=== PATIENT | female | born 1965 | race Hispanic/Latino ===

== ENCOUNTER 2016-07-14 10:34 | Emergency (ER) | payer OTHER ==
[2016-07-14 10:50] VITALS: RESP 20
[2016-07-14] MEDS ORDERED: Oxycodone/Acetaminophen 5/325 mg Tab PO STA (12:05)
[2016-07-14] MEDS ORDERED: Oxycodone/Acetaminophen 5/325 mg Tab ONE (12:16)
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
[2016-07-14 13:10] VITALS: BP 126/85; PULSE 76; TEMP 98.6
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
[2016-07-14 13:12] VITALS: O2SAT 98
--- NOTE | 2016-07-14 13:14 | RAD ---
PROCEDURE: Cervical Spine Radiographs. HISTORY: Pain. COMPARISON: None. FINDINGS: BONES: No definite fracture identified. Dense intact. DISC SPACES: Normal. SOFT TISSUES: Normal. No prevertebral soft tissue swelling. OTHER FINDINGS: None. IMPRESSION: No definite fracture. Further evaluation with cross-sectional imaging can be obtained if clinically indicated.
== END 2016-07-14 13:09 | disposition home or self-care (01) ==
LOC: C.ER 10:34
DX: S16.1XXA Strain of muscle, fascia and tendon at neck level, initial encounter (principal); S39.012A Strain of muscle, fascia and tendon of lower back, initial encounter; V79.50XA Passenger on bus injured in collision with unspecified motor vehicles in traffic accident, initial encounter

== ENCOUNTER 2016-09-27 19:14 | Emergency (ER) | payer MEDICAID, OTHER ==
[2016-09-27] MEDS ORDERED: Fluorescein 1 mg Ophthalmic Strip OS ONE (19:38)
[2016-09-27] MEDS ORDERED: Tetracaine 0.5% Ophth 2 ML BOTTLE OU ONE (19:38)
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
[2016-09-27] MEDS ORDERED: Tetracaine 0.5% Ophth (OR ONLY) ONE (19:45)
[2016-09-27] MEDS ORDERED: Fluorescein 1 mg Ophthalmic Strip ONE (19:45)
[2016-09-27 20:35] VITALS: BP 130/87; RESP 20; TEMP 97.7; O2SAT 97
[2016-09-27 20:42] VITALS: PULSE 93
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
== END 2016-09-27 20:35 | disposition home or self-care (01) ==
LOC: C.ER 19:14
DX: S00.12XA Contusion of left eyelid and periocular area, initial encounter (principal); Y04.0XXA Assault by unarmed brawl or fight, initial encounter; Y93.89 Activity, other specified; Y92.89 Other specified places as the place of occurrence of the external cause

== ENCOUNTER 2017-01-11 12:00 | Emergency (ER) | payer OTHER ==
--- NOTE | 2017-01-11 12:33 | C.PDOC ---
History Of Present Illness 51 y/o female with Hx of Asthma presents to ED with complaints of cough and congestion for 3 days associated with onset sob last night. Patient also reports wheezing but denies fever, nausea, vomiting, abdominal pain, headache or any other complaints at this time. Time Seen by Provider: 01/11/17 12:27 Chief Complaint (Nursing): Cough, Cold, Congestion History Per: Patient History/Exam Limitations: no limitations Onset/Duration Of Symptoms: Days Current Symptoms Are (Timing): Still Present Associated Symptoms: Cough, Nasal Congestion Past Medical History Reviewed: Historical Data, Nursing Documentation, Vital Signs Vital Signs: Last Vital Signs Temp 97.8 F 01/11/17 13:21 Pulse 96 H 01/11/17 13:21 Resp 20 01/11/17 13:21 BP 160/97 H 01/11/17 13:21 Pulse Ox 97 01/11/17 13:21 - Medical History PMH: Asthma, Hypercholesterolemia Surgical History: No Surg Hx Family History: States: Unknown Family Hx - Social History Hx Tobacco Use: No Hx Alcohol Use: No Hx Substance Use: No - Immunization History Hx Tetanus Toxoid Vaccination: No Hx Influenza Vaccination: No Hx Pneumococcal Vaccination: No Review Of Systems Constitutional: Negative for: Fever, Chills ENT: Positive for: Nose Congestion Cardiovascular: Negative for: Chest Pain Respiratory: Positive for: Cough, Shortness of Breath Gastrointestinal: Negative for: Nausea, Vomiting, Abdominal Pain Skin: Negative for: Rash Physical Exam - Physical Exam Appears: Non-toxic, Other (Mild respiratory distress) Skin: Warm, Dry, No Rash Head: Atraumatic, Normacephalic Eye(s): bilateral: Normal Inspection Nose: Normal, No Flaring Oral Mucosa: Moist Throat: Normal, No Erythema Chest: Symmetrical Cardiovascular: Rhythm Regular, No Murmur Respiratory: No Rales, No Rhonchi, Wheezing (bilateral) Gastrointestinal/Abdominal: Soft, No Tenderness, No Guarding, No Rebound Neurological/Psych: Oriented x3 ED Course And Treatment O2 Sat by Pulse Oximetry: 98 (RA) Pulse Ox Interpretation: Normal Medical Decision Making Medical Decision Making: Impression: wheeze, asthma exacerbation, URI Plan: * duonebs x3 * prednisone Reassess and Disposition: Pre peak flow 250, post 300 On reevaluation patient reports feeling better. Lung sounds mildly improved, still wheeze with better air exchange. Patient is asking for discharge and needs Rx for nebulizer machine and albuterol. Rx given. Instruct to follow up with primary doctor. Disposition Counseled Patient/Family Regarding: Diagnosis, Need For Followup, Rx Given - Disposition Referrals: Kirstie Sosa MD [Medical Doctor] - Disposition: HOME/ ROUTINE Disposition Time: 13:25 Condition: IMPROVED Additional Instructions: Your prescriptions were sent to your pharmacy [facility] Please use nebulizer as needed every 4 hours and rescue inhaler as needed Take prednisone daily for 4 days Follow up with your primary doctor Return to the emergency department at any time if symptoms persist or worsen. Prescriptions: Albuterol 0.083% [Albuterol 0.083% Inhal Lise (2.5 mg/3 ml) UD] 2.5 mg IH Q4 # 100 neb Albuterol HFA [Ventolin HFA 90 mcg/actuation (8 g)] 1 puff IH Q4 #1 puff Mask, Face [Nebulizer Aerosol Mask Adult] 1 dev XX PRN #1 dev Nebulizer [Aerosol Therapy Nebulizer] 1 dev XX PRN PRN #1 dev PRN Reason: Shortness Of Breath Prednisone 50 mg PO DAILY #4 tablet Instructions: Asthma (GEN) Forms: [employer] (Cook Islander) - POA Present On Arrival: None - Clinical Impression Clinical Impression: Upper respiratory infection, Asthma exacerbation - PA / LIBRARY SPECIALIST / Resident Statement MD/DO has reviewed & agrees with the documentation as recorded. - Scribe Statement The provider has reviewed the documentation as recorded by the Mich Solano All medical record entries made by the Elsaibabraham were at my direction and personally dictated by me. I have reviewed the chart and agree that the record accurately reflects my personal performance of the history, physical exam, medical decision making, and the department course for this patient. I have also personally directed, reviewed, and agree with the discharge instructions and disposition.
[2017-01-11] MEDS ORDERED: Albuterol-Ipratrop 3 mg / 0.5 (3 ml) UD ONE (12:39)
[2017-01-11] MEDS: Albuterol-Ipratrop 3 mg / 0.5 (3 ml) UD IH SCH (13:04)
[2017-01-11 13:22] VITALS: BP 160/97; PULSE 96; RESP 20; TEMP 97.8
[2017-01-11 13:38] VITALS: O2SAT 98
== END 2017-01-11 13:27 | disposition home or self-care (01) ==
LOC: C.ER 12:00
DX: J06.9 Acute upper respiratory infection, unspecified (principal); J45.901 Unspecified asthma with (acute) exacerbation

== ENCOUNTER 2017-02-17 09:57 | Emergency (ER) | payer OTHER ==
[2017-02-17 10:04] VITALS: BMI 24.7
[2017-02-17 10:05] VITALS: TEMP 97.9
[2017-02-17 10:22] VITALS: RESP 16
--- NOTE | 2017-02-17 10:40 | C.PDOC ---
History Of Present Illness Pt is a 51 yr old female with PMHx of asthma and possible HTN, presents to the ER stating her blood pressure was found to be high yesterday at [facility]. Patient states her systolic was 175 and is concerned (cannot recall diastolic). Patient reports her blood pressure has been high in the past. Patient denies fever, chest pain, SOB, nausea, vomiting, headache, weakness or numbness. Pt states she feels fine (no symptoms) but is anxious about her BP being high. No other complaints at this time. PMD: DR. Sosa Time Seen by Provider: 02/17/17 10:27 Chief Complaint (Nursing): High Blood Pressure History Per: Patient History/Exam Limitations: no limitations Onset/Duration Of Symptoms: Days Associated Symptoms: denies: Chest Pain, Headache Past Medical History Reviewed: Historical Data, Nursing Documentation, Vital Signs Vital Signs: Last Vital Signs Temp 97.9 F 02/17/17 10:13 Pulse 90 02/17/17 10:53 Resp 16 02/17/17 10:53 BP 150/94 H 02/17/17 10:53 Pulse Ox 99 02/17/17 11:17 - Medical History PMH: Asthma, Hypercholesterolemia Family History: States: No Known Family Hx - Social History Hx Tobacco Use: No Hx Alcohol Use: No Hx Substance Use: No - Immunization History Hx Tetanus Toxoid Vaccination: No Hx Influenza Vaccination: No Hx Pneumococcal Vaccination: No Review Of Systems Except As Marked, All Systems Reviewed And Found Negative. Constitutional: Negative for: Fever Cardiovascular: Negative for: Chest Pain Respiratory: Negative for: Shortness of Breath Gastrointestinal: Negative for: Nausea, Vomiting Neurological: Negative for: Weakness, Numbness, Headache Physical Exam - Physical Exam Appears: Non-toxic, No Acute Distress Skin: Warm, Dry, No Rash Head: Atraumatic, Normacephalic Eye(s): bilateral: Normal Inspection, EOMI Nose: Normal Oral Mucosa: Moist Tongue: Normal Appearing Lips: Normal Appearing Throat: Normal Neck: Normal Lymphatic: Deferred Chest: Symmetrical, No Tenderness Cardiovascular: Rhythm Regular, No Murmur Respiratory: Normal Breath Sounds, No Rales, No Rhonchi, No Stridor, No Wheezing Extremity: Normal ROM, No Swelling Extremity: Bilateral: Atraumatic Neurological/Psych: Oriented x3, Normal Speech, Normal Motor, Other (nonfocal) ED Course And Treatment O2 Sat by Pulse Oximetry: 99 (RA) Pulse Ox Interpretation: Normal Medical Decision Making Medical Decision Making: Initial Impression: HTN--Untreated Initial Plan: Will d/c on HCTZ and pt states she will follow up with her PMD Progress note: First dose given of HCTZ. BP lower now. Pt w/ no symptoms. Will d/c home. Disposition Counseled Patient/Family Regarding: Diagnosis, Need For Followup - Disposition Referrals: Kirstie Sosa MD [Medical Doctor] - Disposition: HOME/ ROUTINE Disposition Time: 11:12 Condition: IMPROVED Additional Instructions: Ms. Amaro, thank you for letting us take care of you today. Return to the ER if your symptoms worsen, or if any problems. Take the medication listed below as prescribed. It was sent electronically to [facility]. Follow up with Dr. Sosa next week for a re-evaluation (to repeat your blood pressure). Prescriptions: hydroCHLOROthiazide [Hydrodiuril] 1 tab PO DAILY #30 tab Instructions: Hypertension (ED) Forms: [employer] (Yoruba) Print Language: BULGARIAN - POA Present On Arrival: None - Clinical Impression Clinical Impression: Hypertension - Scribe Statement The provider has reviewed the documentation as recorded by the Mich Mckeon Provider Attestation: All medical record entries made by the Mich were at my direction and personally dictated by me. I have reviewed the chart and agree that the record accurately reflects my personal performance of the history, physical exam, medical decision making, and the department course for this patient. I have also personally directed, reviewed, and agree with the discharge instructions and disposition.
[2017-02-17 10:54] VITALS: BP 150/94; PULSE 90
[2017-02-17 10:57] VITALS: O2SAT 99
== END 2017-02-17 11:24 | disposition home or self-care (01) ==
LOC: C.ER 09:57
DX: I10 Essential (primary) hypertension (principal); E78.00 Pure hypercholesterolemia, unspecified

== ENCOUNTER → 2017-04-24 18:43 | Emergency (ER) | payer MEDICAID, OTHER ==
[2017-04-24 18:43] VITALS: BMI 24.7
== END | disposition left against medical advice (07) ==
LOC: C.ER 18:43
DX: R06.02 Shortness of breath (principal); Z02.9 Encounter for administrative examinations, unspecified

== ENCOUNTER 2017-06-01 16:43 | Emergency (ER) | payer MEDICAID ==
[2017-06-01 17:17] VITALS: BMI 24.6
[2017-06-01 17:19] VITALS: BP 155/125; PULSE 115; RESP 20; TEMP 98.2; O2SAT 95
[2017-06-01] MEDS ORDERED: Aspirin 325 mg EC Tablets PO STA (19:49)
--- NOTE | 2017-06-01 19:49 | C.PDOC ---
Time Seen by Provider: 06/01/17 19:48 Chief Complaint (Nursing): Flu-like Symptoms Past Medical History Vital Signs: Last Vital Signs Temp 98.2 F 06/01/17 17:17 Pulse 115 H 06/01/17 17:17 Resp 20 06/01/17 17:17 BP 155/125 H 06/01/17 17:17 Pulse Ox 95 06/01/17 17:17 - Medical History PMH: Asthma, Hypercholesterolemia Family History: States: Unknown Family Hx - Social History Hx Tobacco Use: No Hx Alcohol Use: No Hx Substance Use: No - Immunization History Hx Tetanus Toxoid Vaccination: No Hx Influenza Vaccination: No Hx Pneumococcal Vaccination: No ED Course And Treatment O2 Sat by Pulse Oximetry: 95 Disposition Counseled Patient/Family Regarding: Studies Performed, Diagnosis - Disposition Disposition Time: 19:48 Forms: [employer] (Spanish)
[2017-06-01] MEDS ORDERED: Albuterol-Ipratrop 3 mg / 0.5 (3 ml) UD IH SCH (20:00)
--- NOTE | 2017-06-04 11:11 | CARD ---
APPROVED REPORT EKG Measurement Heart [id number] <Conclusion> Sinus tachycardia Possible Left atrial enlargement Borderline ECG
== END 2017-06-01 19:48 | disposition left against medical advice (07) ==
LOC: C.ER 16:43
DX: Z02.89 Encounter for other administrative examinations (principal); J11.1 Influenza due to unidentified influenza virus with other respiratory manifestations
CPT/HCPCS: 93005; LWBS0